=== PATIENT | female | born 1985 | race Caucasian/White ===

== ENCOUNTER 2023-09-19 08:30 | Outpatient (CLI) | payer BC, MEDICAID, SELFPAY ==
--- NOTE | 2023-09-19 08:46 | XR_ITS ---
FINAL REPORT CLINICAL HISTORY: left shoulder pain COMPARISON: None FINDINGS: LEFT SHOULDER 3 views of the left shoulder were obtained. There is no acute fracture or dislocation. There are mild hypertrophic changes of the AC joint. Soft tissues are unremarkable. IMPRESSION: Mild hypertrophic changes without acute bony abnormality. Reviewed, Interpreted and Dictated by Yohan June MD Transcribed by Mila Smith Authenticated and [facility]
== END 2023-09-19 23:59 ==
PROVIDERS: PCP Nurse Practitioner Family; Visit Provider Orthopaedic Surgery
DX: M25.512 Pain in left shoulder (principal)
CPT/HCPCS: 73030